=== PATIENT | male | born 1980 | race Caucasian/White ===

== ENCOUNTER 2020-06-24 17:37 | Emergency (ER) | payer OTHER ==
[~2020-06-24] VITALS: Ht 167.6 cm; Wt 80.7 kg
[2020-06-24] MEDS ORDERED: VITAMIN D3-ALO1 EACH PO (22:28)
[2020-06-24] MEDS ORDERED: MELATONIN10 M2 PO (22:28)
[2020-06-24] MEDS ORDERED: IVERMECTIN3 MG PO (22:28)
[2020-06-24] MEDS ORDERED: ZINC SULFATE220 M2 PO (22:28)
[2020-06-24] MEDS ORDERED: AZITHROMYCIN500 MG PO (22:28)
[2020-06-24] MEDS ORDERED: VITAMIN C WIT1000 MG PO (22:28)
[2020-06-24] MEDS ORDERED: COLCHICINE0.6 MG PO (22:28)
[2020-06-24] MEDS ORDERED: ACETAMINOPHEN650 M2 PO (22:28)
== END 2020-06-24 22:57 | disposition home or self-care (01) ==
LOC: ER 17:37
DX: B34.9 Viral infection, unspecified (principal); R06.02 Shortness of breath; Z03.818 Encounter for observation for suspected exposure to other biological agents ruled out